=== PATIENT | male | born 1955 | race Caucasian/White ===

== ENCOUNTER 2019-05-20 15:17 | Emergency (ER) | payer BC, SELFPAY ==
[2019-05-20 15:22] VITALS: BP 123/68; PULSE 79; RESP 20; TEMP 36.6; O2SAT 98
--- NOTE | 2019-05-20 15:27 | DI.RAD.S_ITS ---
PROCEDURE: XR HIP W PEL IF DONE LT 2V INDICATIONS: fall TECHNIQUE: T1 views of the hip were acquired. COMPARISON: None. FINDINGS: Bones: No fractures or dislocations. No suspicious bony lesions. The visualized pelvic ring appears intact. Mild degenerative changes of both hips are present. There may be chondrocalcinosis of the left hip. Soft tissues: No suspicious soft tissue calcifications or masses. IMPRESSION: Mild degenerative changes of the left hip. No fractures. Dictated by: William Kim M.D. on 05/20/2019 at 14:47 Approved by: William Kim M.D. on 05/20/2019 at 14:48
--- NOTE | 2019-05-20 16:01 | ED.LOWEXIN ---
HPI - Extremity Injury (Lower) <Eliza Dempsey PA-C - Last Filed: 05/20/19 19:30> General Chief Complaint: Extremity Injury, Lower Stated Complaint: Fall, states large wound right hip and pain Time Seen by Provider: 05/20/19 16:01 Source: patient Mode of arrival: wheelchair Limitations: no limitations History of Present Illness HPI Narrative: This 63-year-old male was hiking with his large dog when the dog took off, pulling him, and he slipped on wet leaves and fell hard on to his left hip on a rock. He states he had severe pain so much that he could not get up and walk initially for at least 10 minutes, he states that when he tried, pain was so severe that he started to black out a couple of times (states that he has blacked out due to pain in the past and it was the same sensation with buzzing in his ears and closing in sensation). He states that eventually was able to limp out with being supported by others. He states that he gouged his skin in a couple of places, and his knee is a little bit sore but not painful to walk on and does not think he broke it. He is concerned about a possible hip fracture. He denies any new pain in his back. Denies any weakness or paresthesias in the leg. He denies any head contusion, neck pain, or any other injury. He has had multiple broken bones in the past including bilateral calcaneal fractures a couple of years ago, and has multi joint arthritis. Last tetanus vaccine was 1 year ago Related Data Previous Rx's Medication Instructions Recorded oxycodone-acetaminophen [Percocet] 1 tab PO Q4-6H PRN #10 tab 05/20/19 Allergies Allergy/AdvReac Type Severity Reaction Status Date / Time No Known Drug Allergies Allergy Verified 05/20/19 15:22 Review of Systems <Eliza Dempsey PA-C - Last Filed: 05/20/19 19:30> Review of Systems ROS Unobtainable: All systems reviewed & are unremarkable except as noted in HPI and below PFSH <Eliza Dempsey PA-C - Last Filed: 05/20/19 19:30> Medical History (Updated 05/20/19 @ 18:06 by Eliza Fishfader, PA-C) Bilateral calcaneal fractures (Resolved) Herniated nucleus pulposus of lumbosacral region (Chronic) Shoulder separation (Chronic) Surgical History (Updated 05/20/19 @ 16:34 by Eliza Dempsey PA-C) Status post appendectomy (Resolved) Status post tonsillectomy (Resolved) Social History Smoking Status: Former smoker Social History Smoking Status: Former smoker Exam <Eliza Dempsey PA-C - Last Filed: 05/20/19 19:30> Narrative Exam Narrative: GENERAL APPEARANCE: Patient sitting comfortably, in no distress. LUNGS: Clear to auscultation bilaterally. HEART: Rate and rhythm regular without murmur, normal S1 and S2, no S3 or S4. DERMATOLOGIC: Left lateral hip and lateral the area there are bilateral avulsion lacerations 1 and 2 cm diameter respectively without active bleeding, some scabbing. No other wounds noted MUSCULOSKELETAL: No point tenderness over the lumbosacral spine. Tender to palpation over the left lateral hip and lateral thigh/femur. No tenderness over the distal femur or left knee joint. Tender at the left lateral fibular border. No tenderness over the lower leg, left foot or ankle. No effusions noted. He is able to flex and extend the left hip against resistance with mild tenderness. Tender with passive hip rotation at the lateral hip. Negative Obdulio's test. Able to fully flex and extend the knee with mild tenderness. Full range of motion of the left foot and ankle without tenderness NEUROVASCULAR: Left foot is warm and pink with brisk cap refill, sensation grossly intact through the lower extremity Initial Vital Signs Initial Vital Signs: Vital Signs Temperature 97.9 F 05/20/19 15:22 Pulse Rate 79 05/20/19 15:22 Respiratory Rate 20 05/20/19 15:22 Blood Pressure 123/68 05/20/19 15:22 Pulse Oximetry 98 05/20/19 15:22 <Pierre Salas DO - Last Filed: 05/21/19 07:35> Initial Vital Signs Initial Vital Signs: Vital Signs Temperature 97.9 F 05/20/19 15:22 Pulse Rate 79 05/20/19 15:22 Respiratory Rate 20 05/20/19 15:22 Blood Pressure 123/68 05/20/19 15:22 Pulse Oximetry 98 05/20/19 15:22 Course <Eliza Dempsey PA-C - Last Filed: 05/20/19 19:30> Orders Ordered: Discontinued Medications Bacitracin (Bacitracin) 1 applic TOP NOW ONE Stop: 05/20/19 17:24 Oxycodone/Acetaminophen (Percocet 5/325) 2 tab PO NOW ONE Stop: 05/20/19 16:23 Last Admin: 05/20/19 16:29 Dose: 2 tab Vital Signs - 8 hr 05/20/19 15:22 05/20/19 17:06 05/20/19 18:09 Temperature 97.9 F Pulse Rate 79 70 77 Respiratory Rate 20 14 15 Blood Pressure 123/68 Blood Pressure [Right Arm] 137/89 143/86 H Pulse Oximetry 98 100 100 <Pierre Salas DO - Last Filed: 05/21/19 07:35> Orders Ordered: Discontinued Medications Bacitracin (Bacitracin) 1 applic TOP NOW ONE Stop: 05/20/19 17:24 Oxycodone/Acetaminophen (Percocet 5/325) 2 tab PO NOW ONE Stop: 05/20/19 16:23 Last Admin: 05/20/19 16:29 Dose: 2 tab Vital Signs - 8 hr 05/20/19 15:22 05/20/19 17:06 05/20/19 18:09 Temperature 97.9 F Pulse Rate 79 70 77 Respiratory Rate 20 14 15 Blood Pressure 123/68 Blood Pressure [Right Arm] 137/89 143/86 H Pulse Oximetry 98 100 100 MDM - Extremity Injury (Lower) <Eliza Dempsey PA-C - Last Filed: 05/20/19 19:30> Imaging Data hip: Radiologist's impression: [address] [address] XRay Report Signed Patient: Sukhwinder Huggins LMR#: [id number] : 4Acct:[id number] Age/Sex: 63 / MDate of Service: 05/20/19 Loc: ED Accession Number: [id number] Procedure: XR hip w pel if done LT 2V Ordering Provider: Pierre Salas D.O. PROCEDURE: XR HIP W PEL IF DONE LT 2V INDICATIONS: fall TECHNIQUE: T1 views of the hip were acquired. COMPARISON: None. FINDINGS: Bones: No fractures or dislocations. No suspicious bony lesions. The visualized pelvic ring appears intact. Mild degenerative changes of both hips are present. There may be chondrocalcinosis of the left hip. Soft tissues: No suspicious soft tissue calcifications or masses. IMPRESSION: Mild degenerative changes of the left hip. No fractures. Dictated by: William Kim M.D. on 05/20/2019 at 14:47 Approved by: William Kim M.D. on 05/20/2019 at 14:48 femur: Radiologist's impression: Sukhwinder Huggins 63 M [address] [address] XRay Report Signed Patient: Sukhwinder Huggins LMR#: [id number] : 1955cct:[id number] Age/Sex: 63 / MDate of Service: 05/20/19 Loc: ED Accession Number: [id number] Procedure: XR femur LT min 2V Ordering Provider: Eliza Dempsey P.A-C PROCEDURE: XR FEMUR LT MIN 2V INDICATIONS: proximal to mid lateral pain s/p fall TECHNIQUE: 2 views of the femur were acquired. COMPARISON: [facility], CR, XR HIP W PEL IF DONE LT 2V, 05/20/2019, 15:27. FINDINGS: Bones: No displaced femur fractures are evident. There is no obvious dislocation. No suspicious osseous lesions. Soft tissues: No suspicious soft tissue calcifications or masses. IMPRESSION: No displaced femur fractures. Dictated by: William Kim M.D. on 05/20/2019 at 16:05 Approved by: William Kim M.D. on 05/20/2019 at 16:06 tib/fib: Radiologist's impression: [address] [address] XRay Report Signed Patient: Sukhwinder Huggins LMR#: [id number] : 1955cct:[id number] Age/Sex: 63 / MDate of Service: 05/20/19 Loc: ED Accession Number: [id number] Procedure: XR tibia fibula LT 2V Ordering Provider: Eliza Dempsey-C PROCEDURE: XR TIBIA FIBULA RT 2V INDICATIONS: proximal lateral fibular pain s/p fall TECHNIQUE: 2 views of the tibia and fibula were acquired. COMPARISON: None. FINDINGS: Bones: No displaced fractures or dislocations. No suspicious bony lesions. Soft tissues: No suspicious soft tissue calcifications or masses. IMPRESSION: No acute osseous abnormality of the left lower leg. Dictated by: William Kim M.D. on 05/20/2019 at 16:07 Approved by: William Kim M.D. on 05/20/2019 at 16:07 Discharge Plan Departure Patient Disposition: Home Clinical Impression: Avulsion of skin Contusion of leg, left, multiple sites Qualifiers: Encounter type: initial encounter Qualified Code(s): S80.12XA - Contusion of left lower leg, initial encounter Hip strain Qualifiers: Encounter type: initial encounter Laterality: left Qualified Code(s): S76.012A - Strain of muscle, fascia and tendon of left hip, initial encounter Discharge Date/Time: 05/20/19 18:13 Interventions: ED Discharge Assessment Last Done: 05/20/19 18:13 Instructions: DI for Hip Pain Activity Restrictions/Additional Instructions: Please keep your skin wounds clean and dry and monitor for signs of infection. Use the cane when walking to help support your sore hip. I think you have multiple deep bruises and a strain. There was no sign of fracture on her x-ray, but as we talked about, you should follow-up with your PCP in a few days to reassess as you may need repeat x-rays. Take 800mg Ibuprofen every 8 hours and add the oxycodone/acetaminophen as needed, but do not drive as this can make you sleepy. You should return to the ED if you have acutely worsening symptoms over the weekend, i.e. more severe pain, or new symptoms such as numbness or weakness in the leg or color change in her foot. Prescriptions: New oxycodone-acetaminophen [Percocet] 5-325 mg tablet 1 tab PO Q4-6H PRN (Reason: acute hip/leg pain) Qty: 10 RF: 0 Referrals: Cruz Cardoza [Other] <Pierre Salas DO - Last Filed: 05/21/19 07:35> Cosign ED Attending Shahzad Attestation: I was immediately available in the department for consultation. Documentation has been reviewed. I agree with assessment and plan.
--- NOTE | 2019-05-20 16:23 | DI.RAD.S_ITS ---
PROCEDURE: XR FEMUR LT MIN 2V INDICATIONS: proximal to mid lateral pain s/p fall TECHNIQUE: 2 views of the femur were acquired. COMPARISON: [facility], CR, XR HIP W PEL IF DONE LT 2V, 05/20/2019, 15:27. FINDINGS: Bones: No displaced femur fractures are evident. There is no obvious dislocation. No suspicious osseous lesions. Soft tissues: No suspicious soft tissue calcifications or masses. IMPRESSION: No displaced femur fractures. Dictated by: William Kim M.D. on 05/20/2019 at 16:05 Approved by: William Kim M.D. on 05/20/2019 at 16:06
--- NOTE | 2019-05-20 16:23 | DI.RAD.S_ITS ---
PROCEDURE: XR TIBIA FIBULA RT 2V INDICATIONS: proximal lateral fibular pain s/p fall TECHNIQUE: 2 views of the tibia and fibula were acquired. COMPARISON: None. FINDINGS: Bones: No displaced fractures or dislocations. No suspicious bony lesions. Soft tissues: No suspicious soft tissue calcifications or masses. IMPRESSION: No acute osseous abnormality of the left lower leg. Dictated by: William Kim M.D. on 05/20/2019 at 16:07 Approved by: William Kim M.D. on 05/20/2019 at 16:07
[2019-05-20] MEDS: OXYCODONE/ACETAMINOPHEN 5/325 TABLET 2 TAB PO (16:29)
[2019-05-20 17:06] VITALS: BP 137/89; PULSE 70; RESP 14; O2SAT 100
[2019-05-20 18:09] VITALS: BP 143/86; PULSE 77; RESP 15; O2SAT 100
--- NOTE | 2019-05-20 18:09 | PC.NURSE ---
wound cleansed on l hip and l below knee/ cleansed hib/ns, bacitracin and telfa dressing placed on both areas
== END 2019-05-20 18:13 | disposition home or self-care (01) ==
PROVIDERS: Emergency Provider Internal Medicine
DX: S71.011A Laceration without foreign body, right hip, initial encounter (principal); S80.12XA Contusion of left lower leg, initial encounter; S76.012A Strain of muscle, fascia and tendon of left hip, initial encounter; W19.XXXA Unspecified fall, initial encounter; Y93.01 Activity, walking, marching and hiking
CPT/HCPCS: 73502; 73552; 73590; 99283